=== PATIENT | female | born 1970 | race Caucasian/White ===

== ENCOUNTER 2025-05-23 14:50 | Inpatient (IN) | payer OTHER ==
[~2025-05-23] VITALS: Ht 165.1 cm; Wt 57.4 kg
[2025-05-23] MEDS: KETOROLAC TROMETHAMINE 60 MG/2 ML VIAL IM ONE (16:43)
[2025-05-23] MEDS ORDERED: FentaNYL CITRATE PF 100 MCG/2 ML VIAL IM ONE (17:24)
[2025-05-23] MEDS ORDERED: MIDAZOLAM HCL 2 MG/2 ML VIAL IVP ONE (17:24)
[2025-05-23] MEDS: ONDANSETRON HCL 4 MG/2 ML VIAL IM ONE (18:42)
[2025-05-23 18:57] LABS: PLATELET COUNT (AUTO) 269 K/uL (150-450); RED BLOOD CELL COUNT(AUTO) 5.09 MIL/uL (4.00-5.20); RED CELL DISTRIBUTION WIDTH 14.4 % (11.5-14.5); WHITE BLOOD COUNT (AUTO) 7.5 K/uL (4.5-11.0)
[2025-05-23 19:08] LABS: CALCIUM, TOTAL 8.7 mg/dL (8.8-10.5); CREATININE 0.76 mg/dL (0.60-1.30); GLOMERULAR FILTR. RATE CALC > 60 mL/min (>60); GLUCOSE,RANDOM 87 mg/dL (70-110); SODIUM SERUM 138 mmol/L (136-145); UREA NITROGEN, BLOOD 11 mg/dL (7-18)
[2025-05-23 19:27] LABS: TROPONIN I-HIGH SENSITIVITY 12 ng/L (<51)
[2025-05-23] MEDS ORDERED: ZOLPIDEM TARTRATE 5 MG TABLET PO PRN (19:45)
[2025-05-23] MEDS ORDERED: MAGNESIUM HYDROXIDE SUSPENSION 30 ML UDCUP PO PRN (19:45)
[2025-05-23] MEDS ORDERED: BISACODYL 10 MG RECTAL RECTAL SUPPOSITORY PR PRN (19:45)
[2025-05-23] MEDS ORDERED: ONDANSETRON HCL 4 MG/2 ML VIAL IVP PRN (19:45)
[2025-05-23] MEDS: DOCUSATE SODIUM 100 MG CAPSULE PO SCH (21:00)
[2025-05-23] MEDS: HEPARIN SODIUM,PORCINE 5,000 UNITS/ML VIAL SQ SCH (23:23)
[2025-05-23 23:24] VITALS: BP 123/77; PULSE 52; PULSE 66; RESP 18; TEMP 97.7; O2SAT 99
[2025-05-23] MEDS: HYDROCODONE/ACETAMINOPHEN 5-325 MG TABLET PO PRN (23:49)
[2025-05-24 04:00] VITALS: BP 104/70; PULSE 52; RESP 16; TEMP 97.7; O2SAT 98
[2025-05-24 06:59] LABS: PLATELET COUNT (AUTO) 245 K/uL (150-450); RED BLOOD CELL COUNT(AUTO) 4.92 MIL/uL (4.00-5.20); RED CELL DISTRIBUTION WIDTH 14.4 % (11.5-14.5); WHITE BLOOD COUNT (AUTO) 6.0 K/uL (4.5-11.0)
[2025-05-24] MEDS: PANTOPRAZOLE SODIUM 40 MG DR TABLET PO SCH (08:06)
[2025-05-24 09:02] VITALS: BP 113/74; PULSE 52; RESP 18; TEMP 98; O2SAT 99
[2025-05-24] MEDS: MORPHINE SULFATE 4 MG/ML SYRINGE IVP PRN (10:30)
[2025-05-24] MEDS: DEXTROSE 5%-0.45% SODIUM CHL 1,000 ML IV ONE (10:31)
[2025-05-24 12:47] LABS: CALCIUM, TOTAL 8.5 mg/dL (8.8-10.5); CREATININE 0.69 mg/dL (0.60-1.30); GLOMERULAR FILTR. RATE CALC > 60 mL/min (>60); GLUCOSE,RANDOM 90 mg/dL (70-110); SODIUM SERUM 137 mmol/L (136-145); UREA NITROGEN, BLOOD 9 mg/dL (7-18)
[2025-05-24] MEDS: ACETAMINOPHEN 325 MG TABLET PO PRN (15:47)
[2025-05-24 20:43] VITALS: BP_SYST 109; BP_SYST 122; BP_DIAS 72; BP_DIAS 79; PULSE 55; PULSE 86; RESP 18; TEMP 97.9; TEMP 98.4; O2SAT 97; O2SAT 99
[2025-05-25 03:09] VITALS: BP 106/67; PULSE 52; RESP 18; TEMP 97.7; O2SAT 98
[2025-05-25 07:06] LABS: PLATELET COUNT (AUTO) 254 K/uL (150-450); RED BLOOD CELL COUNT(AUTO) 5.08 MIL/uL (4.00-5.20); RED CELL DISTRIBUTION WIDTH 14.2 % (11.5-14.5); WHITE BLOOD COUNT (AUTO) 4.4 K/uL (4.5-11.0)
[2025-05-25 07:10] LABS: CALCIUM, TOTAL 8.5 mg/dL (8.8-10.5); CREATININE 0.60 mg/dL (0.60-1.30); GLOMERULAR FILTR. RATE CALC > 60 mL/min (>60); GLUCOSE,RANDOM 86 mg/dL (70-110); SODIUM SERUM 138 mmol/L (136-145); UREA NITROGEN, BLOOD 8 mg/dL (7-18)
[2025-05-25] MEDS ORDERED: RINGERS SOLUTION,LACTATED 1,000 ML IV ONE (07:11)
[2025-05-25 07:45] VITALS: BP 103/67; PULSE 58; RESP 20; TEMP 97.7; O2SAT 99
[2025-05-25] MEDS ORDERED: BUPIVACAINE HCL/PF 0.5% 30 ML VIAL ONE (08:37)
[2025-05-25] MEDS ORDERED: BUPIVACAINE HCL/PF 0.25% 30 ML VIAL ONE (08:37)
[2025-05-25] MEDS ORDERED: MUPIROCIN CALCIUM 2% 22 GM OINTMENT ONE ×2 (08:45→10:01)
[2025-05-25] MEDS: ETHYL ALCOHOL 62% ANTISEPTIC NASAL SANITIZER 0.6 ML AMPUL NASAL ONE (09:00)
[2025-05-25] MEDS: CHLORHEXIDINE GLUCONATE 2% TOWELETTE [2'S/6'S] TP ONE (09:00)
[2025-05-25] MEDS: RINGERS SOLUTION,LACTATED 1,000 ML IV ONE (09:01)
[2025-05-25] MEDS ORDERED: ACETAMINOPHEN 325 MG TABLET PO PRN (10:45)
[2025-05-25] MEDS: BUPIVACAINE LIPOSOME/PF 1.3%-13.3MG/ML SUSP 20 ML VIAL INJ ONE (11:27)
[2025-05-25 11:36] VITALS: BP 136/78; PULSE 58; RESP 20; TEMP 97.7; O2SAT 96
[2025-05-25] MEDS: CeFAZolin 1 GM/DEXTROSE 50 ML IV SCH (12:21)
[2025-05-25] MEDS ORDERED: PROPOFOL 1% 20 ML VIAL IVP ONE (16:24)
[2025-05-25] MEDS ORDERED: ONDANSETRON HCL 4 MG/2 ML VIAL ONE (16:24)
[2025-05-25] MEDS ORDERED: GLYCOPYRROLATE 0.2 MG/ML VIAL ONE (16:24)
[2025-05-25] MEDS ORDERED: DEXAMETHASONE SOD PHOS 4 MG/ML VIAL ONE (16:24)
[2025-05-25] MEDS ORDERED: LIDOCAINE/PF 2% 5 ML VIAL ONE (16:24)
[2025-05-25] MEDS ORDERED: ROCURONIUM BROMIDE 10 MG/ML 5 ML VIAL ONE (16:24)
[2025-05-25] MEDS ORDERED: METOCLOPRAMIDE HCL 5 MG/ML 2 ML VIAL IVP ONE (16:24)
[2025-05-25] MEDS ORDERED: METOCLOPRAMIDE HCL 5 MG/ML 2 ML VIAL ONE (16:24)
[2025-05-25 20:01] VITALS: BP 116/72; PULSE 65; RESP 17; TEMP 98.2; O2SAT 98
[2025-05-25] MEDS: MORPHINE SULFATE 4 MG/ML SYRINGE IVP ONE (21:43)
[2025-05-25] MEDS ORDERED: OxyCODONE HCL/ACETAMINOPHEN 5-325 MG TABLET PO PRN (23:15)
[2025-05-25] MEDS ORDERED: IBUPROFEN 800 MG TABLET PO PRN (23:30)
[2025-05-25] MEDS: IBUPROFEN 800 MG TABLET PO ONE (23:36)
[2025-05-25] MEDS: OxyCODONE HCL/ACETAMINOPHEN 5-325 MG TABLET PO ONE (23:36)
[2025-05-25] MEDS: GABAPENTIN 300 MG CAPSULE PO SCH (23:36)
[2025-05-26 03:50] VITALS: BP 106/66; PULSE 59; RESP 17; TEMP 98.4; O2SAT 98
[2025-05-26] MEDS ORDERED: OxyCODONE HCL/ACETAMINOPHEN 5-325 MG TABLET PO PRN (04:00)
[2025-05-26 06:33] LABS: PLATELET COUNT (AUTO) 244 K/uL (150-450); RED BLOOD CELL COUNT(AUTO) 4.75 MIL/uL (4.00-5.20); RED CELL DISTRIBUTION WIDTH 14.0 % (11.5-14.5); WHITE BLOOD COUNT (AUTO) 8.3 K/uL (4.5-11.0)
[2025-05-26 06:35] LABS: CALCIUM, TOTAL 8.7 mg/dL (8.8-10.5); CREATININE 0.66 mg/dL (0.60-1.30); GLOMERULAR FILTR. RATE CALC > 60 mL/min (>60); GLUCOSE,RANDOM 122 mg/dL (70-110); SODIUM SERUM 139 mmol/L (136-145); UREA NITROGEN, BLOOD 10 mg/dL (7-18)
[2025-05-26 08:00] VITALS: BP 113/67; PULSE 60; RESP 18; TEMP 97.7; O2SAT 97
[2025-05-26] MEDS ORDERED: DOCU-385 PO (13:32)
[2025-05-26] MEDS ORDERED: GABA-1181 PO (13:33)
[2025-05-26] MEDS ORDERED: ACET-2247 PO (13:34)
[2025-05-26] MEDS ORDERED: IBUP-1493 PO (13:35)
[2025-05-26] MEDS ORDERED: PERCT PO (13:36)
== END 2025-05-26 17:25 | DRG 502 ==
LOC: EMS 14:50 → EDH 19:35 → 6N 22:30
PROVIDERS: ADMIT Internal Medicine; ATTEND Internal Medicine
PROC: 0KN80ZZ Release Left Upper Arm Muscle, Open Approach (ICD-10-PCS; 2025-05-25)
PROC: 0PSLXZZ Reposition Left Ulna, External Approach (ICD-10-PCS; 2025-05-25)
PROC: 0RSPXZZ Reposition Left Wrist Joint, External Approach (ICD-10-PCS; 2025-05-25)
PROC: 0PSJ04Z Reposition Left Radius with Internal Fixation Device, Open Approach (ICD-10-PCS; principal; 2025-05-25 09:30)
DX: S52.572A Other intraarticular fracture of lower end of left radius, initial encounter for closed fracture (principal); S52.532A Colles' fracture of left radius, initial encounter for closed fracture; S63.012A Subluxation of distal radioulnar joint of left wrist, initial encounter; S52.612A Displaced fracture of left ulna styloid process, initial encounter for closed fracture; Z88.8 Allergy status to other drugs, medicaments and biological substances; Y93.89 Activity, other specified; Y92.89 Other specified places as the place of occurrence of the external cause; Y99.8 Other external cause status; W01.0XXA Fall on same level from slipping, tripping and stumbling without subsequent striking against object, initial encounter; S60.222A Contusion of left hand, initial encounter
CPT/HCPCS: 71045; 80048; 84484; 85025; 87081; 93005; 96372; 97110; 97162; 97165; 97760; 99285; J0666; J0690; J1100; J1171; J1644; J2250; J2270; J2405; J2704; J2765; J3010; J3490; J7120; 36415-L1; 36415-TC; Z7610